=== PATIENT | female | born 1955 | race Caucasian/White ===

== ENCOUNTER 2021-12-29 14:21 | Observation (INO) | payer BC ==
[2021-12-29] MEDS ORDERED: cefOXitin 2 GM in Premix Bag 1 BAG IV ONE ×2 (14:48→14:56)
[2021-12-29] MEDS ORDERED: Rocuronium Bromide 50 MG/5 ML Syringe ONE ×2 (14:53→16:40)
[2021-12-29] MEDS ORDERED: Sugammadex Sodium 200 MG/2 ML VIAL ONE ×2 (14:53→16:40)
[2021-12-29] MEDS ORDERED: Lidocaine 2% 5 ML SDV ONE (14:53)
[2021-12-29] MEDS ORDERED: Dexamethasone 4 MG/ML 5 ML MDV ONE ×2 (14:53→16:40)
[2021-12-29] MEDS ORDERED: Ondansetron 4 MG/2 ML SDV ONE ×2 (14:53→16:40)
[2021-12-29] MEDS ORDERED: fentaNYL 100 MCG/2 ML SDV ONE ×2 (14:54→16:39)
[2021-12-29] MEDS ORDERED: Propofol 200 MG/20 ML SDV ONE (14:54)
[2021-12-29] MEDS ORDERED: Lactated Ringers 1,000 ML IV SCH ×3 (15:00→18:00)
[2021-12-29] MEDS ORDERED: Bupivacaine 0.25%/EPINEPHrine 1:200,000 10 ML SDV ONE (15:07)
[2021-12-29] MEDS ORDERED: Scopolamine 1.5 MG Transdermal Patch ONE (15:23)
[2021-12-29] MEDS ORDERED: Famotidine 20 MG/2 ML SDV ONE (15:44)
[2021-12-29] MEDS ORDERED: Naloxone 0.4 MG/ML SDV IVPUSH PRN (15:54)
[2021-12-29] MEDS ORDERED: fentaNYL 100 MCG/2 ML SDV IVPUSH PRN (15:54)
[2021-12-29] MEDS ORDERED: Metoclopramide 10 MG/2 ML SDV IVPUSH PRN (15:54)
[2021-12-29] MEDS ORDERED: HYDROmorphone 1 MG/ML Syringe IVPUSH PRN (15:54)
[2021-12-29] MEDS ORDERED: Ondansetron 4 MG/2 ML SDV IVPUSH PRN ×2 (15:54→17:47)
[2021-12-29] MEDS ORDERED: Morphine 4 MG/ML VIAL IVPUSH PRN ×2 (15:54→17:48)
[2021-12-29] MEDS ORDERED: Albuterol 0.083% 2.5 MG/3 ML Neb Soln NEB PRN (15:54)
[2021-12-29] MEDS ORDERED: fentaNYL 250 MCG/5 ML SDV ONE ×2 (16:11→16:48)
[2021-12-29] MEDS ORDERED: Ketamine HCL/NACL, ISO-OSM 50 MG/5 ML Syringe ONE (16:16)
[2021-12-29] MEDS ORDERED: propofoL 100 ML ONE (16:29)
[2021-12-29] MEDS ORDERED: Succinylcholine/Sod PF 100 MG/5 ML SYRINGE IV ONE (16:40)
[2021-12-29] MEDS ORDERED: ePHEDrine 50 MG/ML SDV ONE (16:40)
[2021-12-29] MEDS ORDERED: Acetaminophen/oxyCODONE 325-5 MG Tab PO PRN (17:48)
[2021-12-29] MEDS: cefOXitin 1 GM in Premix Bag 1 BAG IV SCH (20:58)
[2021-12-30] MEDS: cefOXitin 1 GM in Premix Bag 1 BAG IV SCH ×2 (02:14→10:20)
== END 2021-12-30 13:05 | disposition home or self-care (01) ==
LOC: MW.MS 14:21
PROVIDERS: ADMIT Surgery; ATTEND Surgery
DX: K35.33 Acute appendicitis with perforation, localized peritonitis, and gangrene, with abscess (principal); E07.9 Disorder of thyroid, unspecified; Z88.2 Allergy status to sulfonamides; Z88.5 Allergy status to narcotic agent; Z20.822 Contact with and (suspected) exposure to COVID-19
CPT/HCPCS: 44970; 82947; 87635; A9270; J0131; J0330; J0694; J1100; J2270; J2704; J3010; J3490; J7030; J7120; 00840; J2405; U0002

== ENCOUNTER 2025-04-09 05:41 | Emergency (ER) | payer MEDICARE ==
[2025-04-09] MEDS ORDERED: Sodium Chloride 0.9% 10 ML Syringe FLUSH PRN (06:15)
[2025-04-09] MEDS ORDERED: Sodium Chloride 0.9% 2.5 ML Syringe FLUSH PRN (06:15)
[2025-04-09 06:21] LABS: BASOPHILS ABSOLUTE AUTO 0.02 K/uL (0.00-0.20); BASOPHILS PERCENT AUTO 0.2 % (0.0-1.0); EOSINOPHILS ABSOLUTE AUTO 0.04 K/uL (0.00-0.45); EOSINOPHILS PERCENT AUTO 0.4 % (0.0-6.0); IMMATURE GRAN ABSOLUTE AUTO 0.02 K/uL (0.00-0.05); IMMATURE GRAN PERCENT AUTO 0.2 % (0.0-0.4); LYMPHOCYTES ABSOLUTE AUTO 2.89 K/uL (1.00-4.80); LYMPHOCYTES PERCENT AUTO 29.0 % (24.0-44.0); MEAN PLATELET VOLUME 8.6 fL (9.4-12.3); MONOCYTES ABSOLUTE AUTO 0.35 K/uL (0.00-0.80); MONOCYTES PERCENT AUTO 3.5 % (0.0-8.0); NEUTROPHILS ABSOLUTE AUTO 6.66 K/uL (1.80-7.70); NEUTROPHILS PERCENT AUTO 66.7 % (41.0-71.0); NRBC ABSOLUTE 0.00 K/uL (0.00-0.02); NRBC PERCENT 0.0 /100WBC (0.0-0.2); PLATELET COUNT,PLT 278 K/uL (150-400); RED BLOOD CELL COUNT 4.85 M/uL (4.10-5.30); WHITE BLOOD CELL COUNT,WBC 9.98 K/uL (3.9-11.3)
[2025-04-09] MEDS: Ketorolac 30 MG/ML SDV IVPUSH ONE (06:23)
[2025-04-09] MEDS: Ondansetron 4 MG/2 ML SDV IVPUSH ONE (06:23)
[2025-04-09 06:33] LABS: A/G RATIO 1.1 (0.9-1.6); ALANINE AMINOTRANSFERASE,ALT 35.0 IU/L (14-63); ASPARTATE AMNIOTRANSFERASE,AST 18.0 IU/L (15-37); BILIRUBIN TOTAL 0.4 mg/dL (0.2-1.0); BLOOD UREA NITROGEN,BUN 22.0 mg/dL (7.0-18.0); CARBON DIOXIDE,CO2 26.1 mmol/L (21.0-32.0); CHLORIDE,CL 104.0 mmol/L (98-107); CREATININE 1.1 mg/dL (0.6-1.0); EST CRCL DRUG DOSING (CG) 44.05 mL/min; ESTIMATED GFR 55.0 mL/min (>60); GLUCOSE RANDOM 143.0 mg/dL (74-106); POTASSIUM,K 4.2 mmol/L (3.5-5.1); PROTEIN TOTAL,TP 7.6 g/dL (6.4-8.2); SODIUM,NA 140.0 mmol/L (136-145)
[2025-04-09 07:21] LABS: GLUCOSE,URINE NEGATIVE (NEGATIVE); OCCULT BLOOD,URINE SMALL (NEGATIVE)
[2025-04-09 07:25] LABS: APPEARANCE,URINE HAZY
[2025-04-09 07:31] LABS: EPITHELIAL CELLS,URINE OCCASIONAL (NONE-FEW)
== END 2025-04-09 08:32 | disposition home or self-care (01) ==
LOC: MW.ED 05:41
DX: K80.50 Calculus of bile duct without cholangitis or cholecystitis without obstruction (principal); K29.00 Acute gastritis without bleeding; E78.00 Pure hypercholesterolemia, unspecified; E03.9 Hypothyroidism, unspecified; Z88.5 Allergy status to narcotic agent; Z88.2 Allergy status to sulfonamides; Z79.899 Other long term (current) drug therapy; Z79.890 Hormone replacement therapy
CPT/HCPCS: 36415; 76705; 80053; 81001; 83690; 85025; 96374; 96375; 99285; A9270; J1308; J1885; J2405; J7030; 99283

== ENCOUNTER 2025-07-22 17:56 | Emergency (ER) | payer MEDICARE ==
[2025-07-22] MEDS: Ondansetron 4 MG Tab.DIS PO ONE (19:54)
[2025-07-22] MEDS ORDERED: Sodium Chloride 0.9% 2.5 ML Syringe FLUSH PRN (20:24)
[2025-07-22] MEDS ORDERED: Sodium Chloride 0.9% 10 ML Syringe FLUSH PRN (20:24)
[2025-07-22 20:40] LABS: BASOPHILS ABSOLUTE AUTO 0.03 K/uL (0.00-0.20); BASOPHILS PERCENT AUTO 0.2 % (0.0-1.0); EOSINOPHILS ABSOLUTE AUTO 0.02 K/uL (0.00-0.45); EOSINOPHILS PERCENT AUTO 0.2 % (0.0-6.0); IMMATURE GRAN ABSOLUTE AUTO 0.06 K/uL (0.00-0.05); IMMATURE GRAN PERCENT AUTO 0.5 % (0.0-0.4); LYMPHOCYTES ABSOLUTE AUTO 1.69 K/uL (1.00-4.80); LYMPHOCYTES PERCENT AUTO 12.7 % (24.0-44.0); MEAN PLATELET VOLUME 8.7 fL (9.4-12.3); MONOCYTES ABSOLUTE AUTO 0.50 K/uL (0.00-0.80); MONOCYTES PERCENT AUTO 3.8 % (0.0-8.0); NEUTROPHILS ABSOLUTE AUTO 10.97 K/uL (1.80-7.70); NEUTROPHILS PERCENT AUTO 82.6 % (41.0-71.0); NRBC ABSOLUTE 0.00 K/uL (0.00-0.02); NRBC PERCENT 0.0 /100WBC (0.0-0.2); PLATELET COUNT,PLT 257 K/uL (150-400); RED BLOOD CELL COUNT 4.72 M/uL (4.10-5.30); WHITE BLOOD CELL COUNT,WBC 13.27 K/uL (3.9-11.3)
[2025-07-22 20:52] LABS: INR 1.01 (0.86-1.11)
[2025-07-22 21:02] LABS: A/G RATIO 1.2 (0.9-1.6); ALANINE AMINOTRANSFERASE,ALT 31.0 IU/L (14-63); ASPARTATE AMNIOTRANSFERASE,AST 26.0 IU/L (15-37); BILIRUBIN TOTAL 0.4 mg/dL (0.2-1.0); BLOOD UREA NITROGEN,BUN 21.0 mg/dL (7.0-18.0); CARBON DIOXIDE,CO2 25.7 mmol/L (21.0-32.0); CHLORIDE,CL 104.0 mmol/L (98-107); CREATININE 0.8 mg/dL (0.6-1.0); EST CRCL DRUG DOSING (CG) 59.72 mL/min; GLUCOSE RANDOM 124.0 mg/dL (74-106); POTASSIUM,K 4.0 mmol/L (3.5-5.1); PROTEIN TOTAL,TP 8.1 g/dL (6.4-8.2); SODIUM,NA 140.0 mmol/L (136-145)
[2025-07-22 21:04] LABS: ESTIMATED GFR 80.0 mL/min (>60)
[2025-07-22] MEDS: fentaNYL 50 MCG/ML SDV IVPUSH ONE (21:53)
[2025-07-22] MEDS: Ondansetron 4 MG/2 ML SDV IVPUSH ONE (21:53)
== END 2025-07-22 22:33 ==
LOC: MW.ED 17:56
DX: S52.502A Unspecified fracture of the lower end of left radius, initial encounter for closed fracture (principal); S82.142A Displaced bicondylar fracture of left tibia, initial encounter for closed fracture; E78.00 Pure hypercholesterolemia, unspecified; E03.9 Hypothyroidism, unspecified; Z75.3 Unavailability and inaccessibility of health-care facilities; Z88.2 Allergy status to sulfonamides; Z88.5 Allergy status to narcotic agent; Z79.899 Other long term (current) drug therapy; Z79.890 Hormone replacement therapy; W08.XXXA Fall from other furniture, initial encounter; Y93.89 Activity, other specified
CPT/HCPCS: 36415; 73100; 73120; 73560; 80053; 85025; 85610; 85730; 96361; 96374; 96375; 99285; A9270; J2405; J3010; J7030; 99284